=== PATIENT | female | born 1985 | race American Indian/Alaskan Native ===

== ENCOUNTER 2016-06-17 08:57 | Emergency (ER) | payer SELFPAY ==
[2016-06-17 09:25] VITALS: BP 111/79
[2016-06-17 09:47] LABS: Basophils % (Auto) 0.4 % (0.0-1.8); Eosinophils % (Auto) 0.1 % (0.0-4.3); Hematocrit 35.5 % (30.3-42.9); Hemoglobin 11.4 gm/dl (10.1-14.3); Mean Corpuscular HGB Conc 32 % (30-34); Mean Corpuscular Hemoglobin 29 pg (28-32); Mean Corpuscular Volume 89 fl (79-97); Platelet Count 300 K/mm3 (140-440); Red Blood Count 3.99 M/mm3 (3.65-5.03); Red Cell Distribution Width 15.8 % (13.2-15.2); White Blood Count 6.4 K/mm3 (4.5-11.0)
[2016-06-17 10:13] LABS: Alanine Aminotransferase 10 units/L (7-56); Albumin 4.1 g/dL (3.9-5); Albumin/Globulin Ratio 1.2 %; Alkaline Phosphatase 52 units/L (35-129); Bilirubin,Total 0.3 mg/dL (0.1-1.2); Blood Urea Nitrogen 9 mg/dL (7-17); Calcium 8.8 mg/dL (8.4-10.2); Carbon Dioxide 23 mmol/L (22-30); Glucose 80 mg/dL (65-100); Lipase 50 units/L (13-60); Total Protein 7.5 g/dL (6.3-8.2)
[2016-06-17 10:14] LABS: Anion Gap 17 mmol/L; Chloride 101.1 mmol/L (98-107); Potassium 3.6 mmol/L (3.6-5.0); Sodium 137 mmol/L (137-145)
[2016-06-17 10:20] LABS: Bacteria,Urine 1+ /HPF (Negative); Bilirubin,Urine NEG (Negative); Blood,Urine NEG (Negative); Ketones,Urine TR mg/dL (Negative); Leukocyte Esterase,Urine NEG (Negative); Mucus,Urine 1+ /HPF; Nitrite,Urine NEG (Negative); Protein,Urine <15 mg/dL mg/dL (Negative); Urobilinogen,Urine < 2.0 mg/dL (<2.0)
--- NOTE | 2016-06-18 01:39 | ED Elopement Review ---
ED Pt Elopement review - Results review Lab results: Laboratory Tests 06/17/16 06/17/16 06/17/16 09:31 09:31 09:40 WBC 6.4 RBC 3.99 Hgb 11.4 Hct 35.5 MCV 89 MCH 29 MCHC 32 RDW 15.8 H Plt Count 300 Lymph % (Auto) 25.4 [place] % (Auto) 11.3 H Eos % (Auto) 0.1 Baso % (Auto) 0.4 Lymph # 1.6 [place] # 0.7 Eos # 0.0 Baso # 0.0 Seg Neutrophils % 62.8 Seg Neutrophils # 4.0 Sodium 137 Potassium 3.6 Chloride 101.1 Carbon Dioxide 23 Anion Gap 17 BUN 9 Creatinine 0.6 L Estimated GFR > 60 BUN/Creatinine Ratio 15.00 Glucose 80 Calcium 8.8 Total Bilirubin 0.3 AST 15 ALT 10 Alkaline Phosphatase 52 Total Protein 7.5 Albumin 4.1 Albumin/Globulin Ratio 1.2 Lipase 50 Urine Color Yellow Urine Turbidity Clear Urine pH 6.0 Ur Specific [place] 1.017 Urine Protein <15 mg/dl Urine Glucose (UA) Neg Urine Ketones Tr Urine Blood Neg Urine Nitrite Neg Urine Bilirubin Neg Urine Urobilinogen < 2.0 Ur Leukocyte Esterase Neg Urine WBC (Auto) 3.0 Urine RBC (Auto) 5.0 U Epithel Cells (Auto) 14.0 H Urine Bacteria (Auto) 1+ Urine Mucus 1+ - Call Back decision Pt Call Back Decision: Pt to F/U with PMD
== END 2016-06-17 09:35 | disposition left against medical advice (07) ==
LOC: ED 08:57
DX: R10.9 Unspecified abdominal pain (principal); Z53.21 Procedure and treatment not carried out due to patient leaving prior to being seen by health care provider
CPT/HCPCS: 36415; 80053; 81001; 83690; 85025

== ENCOUNTER 2021-10-09 11:24 | Emergency (ER) | payer MEDICAID ==
--- NOTE | 2021-10-09 12:40 | Emergency Department Report ---
Chief Complaint: Nausea/Vomiting/Diarrhea Stated Complaint: /DEHYDRATED/SENT FROM URGENT CARE Time Seen by Provider: 10/09/21 12:37 - HPI History of Present Illness: 36-year-old black female G6, P6 who is about 8 weeks gestation presents to the emergency department for evaluation of several day history of persistent nausea vomiting. She denies abdominal pain but states that she has not been able to keep anything down. - ROS Review of Systems: Complains of nausea, vomiting, and generalized fatigue. Denies abdominal pain, dysuria, and fever. - Exam Physical Exam: Awake alert oriented x3. MSE screening note: Focused history and physical exam performed. Due to findings the following was ordered: CBC CMP UA, 1 L saline, and Zofran 4 mg IV. Patient to be further evaluated when she gets to a room. ED Disposition for MSE Condition: Stable
[2021-10-09] MEDS ORDERED: ONDANSETRON 4 MG/2 ML INJ IV ONE (12:41)
[2021-10-09] MEDS ORDERED: SODIUM CHLORIDE 0.9% 1000 ML 1,000 ML IV ONE (12:41)
== END 2021-10-09 19:27 | disposition left against medical advice (07) ==
LOC: ED 11:24
DX: O26.891 Other specified pregnancy related conditions, first trimester (principal); E86.0 Dehydration; O21.9 Vomiting of pregnancy, unspecified; Z3A.00 Weeks of gestation of pregnancy not specified; Z53.21 Procedure and treatment not carried out due to patient leaving prior to being seen by health care provider